=== PATIENT | female | born 1955 | race American Indian/Alaskan Native ===

== ENCOUNTER 2016-09-30 12:17 | Outpatient (CLI) | payer OTHER ==
[2016-09-30] MEDS ORDERED: PROVENTIL IH ONE (12:31)
== END 2016-09-30 12:18 | disposition home or self-care (01) ==
LOC: PF 12:17
PROVIDERS: ATTEND Internal Medicine
DX: J44.9 Chronic obstructive pulmonary disease, unspecified (principal)
CPT/HCPCS: 94060; 94640

== ENCOUNTER 2021-05-19 15:55 | Emergency (ER) | payer MEDICARE ==
[2021-05-19 16:00] VITALS: BP 120/69
[2021-05-19] MEDS ORDERED: MAGNESIUM SULFATE 2 GM/50 ML BAG IV ONE (16:06)
[2021-05-19] MEDS ORDERED: methylPREDNISolone Sod Succinate 125 MG/2 ML INJ IV ONE (16:06)
[2021-05-19] MEDS ORDERED: IPRATROPIUM 0.02% NEBU 2.5 ML IH ONE (16:07)
[2021-05-19] MEDS ORDERED: ALBUTEROL 2.5 MG/3 ML NEBU IH ONE (16:07)
--- NOTE | 2021-05-19 16:10 | Emergency Department Report ---
ED Shortness of Breath HPI - General Chief Complaint: Dyspnea/Respdistress Stated Complaint: SOB Time Seen by Provider: 05/19/21 16:04 Source: patient Mode of arrival: Ambulatory Limitations: No Limitations - History of Present Illness Initial Comments: Chief complaint: Difficulty breathing HPI: This is a 65-year-old female with history of COPD asthma, diabetes mellitus who presents with severe shortness of breath. Sudden onset this afternoon while driving. She has nonproductive cough shortness of breath wheezing. She is followed by sports broadcasting internship affiliated with [facility]. She denies fever, chest pain, abdominal pain, leg pain MD Complaint: shortness of breath -: Sudden, This afternoon Severity: severe Consistency: constant Improves With: nothing Worsens With: nothing Known History Of: COPD, asthma Associated Symptoms: denies other symptoms - Related Data Previous Rx's Medication Instructions Recorded Last Taken Type Doxycycline Hyclate [Doxycycline 100 mg PO Q12HR 7 Days #14 tab 05/19/21 Unknown Rx Hyclate TAB] Prednisone [predniSONE 10 mg 10 mg PO .TAPER #1 tab.ds.pk 05/19/21 Unknown Rx (6-Day Pack, 21 Tabs)] Allergies Allergy/AdvReac Type Severity Reaction Status Date / Time egg AdvReac STOMACH Unverified 04/12/13 12:56 CRAMPS,NAUSEA shellfish derived AdvReac Swelling Verified 05/19/21 16:37 ED Review of Systems ROS: Stated complaint: SOB Other details as noted in HPI Comment: All other systems reviewed and negative Constitutional: denies: chills, fever, malaise Respiratory: cough, shortness of breath Cardiovascular: denies: chest pain Gastrointestinal: denies: abdominal pain, nausea, vomiting ED Past Medical Hx - Past Medical History Previous Medical History?: Yes Hx Diabetes: Yes Hx Asthma: Yes Hx COPD: Yes - Surgical History Past Surgical History?: Yes Hx Cholecystectomy: Yes - Social History Smoking Status: Current Every Day Smoker Substance Use Type: None - Medications Home Medications: Home Medications Medication Instructions Recorded Confirmed Last Taken Type Doxycycline Hyclate [Doxycycline 100 mg PO Q12HR 7 Days #14 tab 05/19/21 Unknown Rx Hyclate TAB] Prednisone [predniSONE 10 mg 10 mg PO .TAPER #1 tab.ds.pk 05/19/21 Unknown Rx (6-Day Pack, 21 Tabs)] ED Physical Exam - General Limitations: No Limitations General appearance: alert, in distress, other (Accessory muscle use, tripod position, patient unable to speak full sentences) - Head Head exam: Present: atraumatic, normocephalic - Eye Eye exam: Present: normal appearance - ENT ENT exam: Present: mucous membranes moist - Neck Neck exam: Present: normal inspection, full ROM - Respiratory Respiratory exam: Present: accessory muscle use, decreased breath sounds, prolonged expiratory. Absent: respiratory distress, wheezes, rales, rhonchi - Cardiovascular Cardiovascular Exam: Present: normal rhythm, tachycardia, normal heart sounds. Absent: systolic murmur, diastolic murmur, rubs, gallop - GI/Abdominal GI/Abdominal exam: Present: soft, normal bowel sounds. Absent: distended, tenderness, guarding, rebound - Extremities Exam Extremities exam: Present: normal inspection - Neurological Exam Neurological exam: Present: alert, oriented X3 - Psychiatric Psychiatric exam: Present: normal affect, normal mood - Skin Skin exam: Present: warm, dry, intact, normal color. Absent: rash ED Course Vital Signs 05/19/21 05/19/21 15:59 17:06 Temperature 97.6 F Pulse Rate 106 H Pulse Rate [ 88 Anterior Bilateral Throughout] Respiratory 26 H Rate Respiratory 25 H Rate [Anterior Bilateral Throughout] Blood Pressure 120/69 [Left] O2 Sat by Pulse 97 Oximetry - Reevaluation(s) Reevaluation #1: 05/19/21 18:00 She feels much better. Oxygen 100% sent with approximately 30% FiO2. She is receiving nebulizer therapy. Moving air well clear breath sounds. Speaking full sentences. Reevaluation #2: 05/19/21 18:42 Patient is now laying flat. Resting comfortably. Discharged home. ED Medical Decision Making - Lab Data Result diagrams: 05/19/21 16:36 05/19/21 16:36 - Radiology Data Radiology results: report reviewed Patient Name: MYRIAM NEWMAN Gender: Female Date of : 1955 Referring Provider: ADRIANO PRESCOTT Organization: [facility] Accession Number: [id number] Requested Date: May 19, 2021 16:06 Report Status: Final Requested Procedure: 1 Procedure Description: XR chest 1V ap Modality: XR Findings Reporting MD: Miguel Villalta Dictation Time: May 19, 2021 15:36 Co Teacher: Not available Long Distance Billing Operator Date: CHEST 1 VIEW 05/19/2021 4:26 PM INDICATION / CLINICAL INFORMATION: Dyspnea. COMPARISON: 01/02/2013 FINDINGS: SUPPORT DEVICES: None. HEART / MEDIASTINUM: No significant abnormality. LUNGS / PLEURA: No significant pulmonary or pleural abnormality. No pneumothorax. ADDITIONAL FINDINGS: No significant additional findings. IMPRESSION: 1. No acute findings. Signer Name: Miguel Villalta DO Signed: 05/19/2021 3:36 PM Workstation Name: [id number] - Medical Decision Making Acute COPD exacerbation: Chest radiograph without acute findings CBC chemistry within normal limits. Prescribed doxycycline and prednisone. Critical care attestation.: If time is entered above; I have spent that time in minutes in the direct care of this critically ill patient, excluding procedure time. ED Disposition Clinical Impression: COPD with acute exacerbation Disposition: 01 HOME / SELF CARE / HOMELESS Is pt being admited?: No Does the pt Need Aspirin: No Condition: Stable Instructions: Chronic Obstructive Pulmonary Disease (ED), Chronic Obstructive Pulmonary Disease Prescriptions: Doxycycline Hyclate [Doxycycline Hyclate TAB] 100 mg PO Q12HR 7 Days #14 tab Prednisone [predniSONE 10 mg (6-Day Pack, 21 Tabs)] 10 mg PO .TAPER #1 tab.pk Referrals: PRIMARY CARE, [Primary Care Provider] - 3-5 Days
--- NOTE | 2021-05-19 16:41 | XRay Report ---
CHEST 1 VIEW 05/19/2021 4:26 PM INDICATION / CLINICAL INFORMATION: Dyspnea. COMPARISON: 01/02/2013 FINDINGS: SUPPORT DEVICES: None. HEART / MEDIASTINUM: No significant abnormality. LUNGS / PLEURA: No significant pulmonary or pleural abnormality. No pneumothorax. ADDITIONAL FINDINGS: No significant additional findings. IMPRESSION: 1. No acute findings. Signer Name: Miguel Villalta DO Signed: 05/19/2021 4:36 PM Workstation Name: [id number]
[2021-05-19 17:12] LABS: Basophils # (Auto) 0.1 K/mm3 (0.0-0.1); Basophils % (Auto) 1.2 % (0.0-1.8); Eosinophils # (Auto) 0.3 K/mm3 (0.0-0.4); Eosinophils % (Auto) 3.2 % (0.0-4.3); Hematocrit 44.5 % (30.3-42.9); Hemoglobin 14.8 gm/dl (10.1-14.3); Lymphocytes # (Auto) 1.9 K/mm3 (1.2-5.4); Lymphocytes % (Auto) 21.1 % (13.4-35.0); Mean Corpuscular HGB Conc 33 % (30-34); Mean Corpuscular Volume 91 fl (79-97); Monocytes # (Auto) 0.7 K/mm3 (0.0-0.8); Monocytes % (Auto) 7.3 % (0.0-7.3); Platelet Count 235 K/mm3 (140-440); Red Blood Count 4.87 M/mm3 (3.65-5.03); Red Cell Distribution Width 13.9 % (13.2-15.2)
[2021-05-19 17:31] LABS: BUN/Creatinine Ratio 14; Blood Urea Nitrogen 11 mg/dL (7-17); Hemolysis Index 5
== END 2021-05-19 18:50 | disposition home or self-care (01) ==
LOC: ED 15:55
DX: J44.1 Chronic obstructive pulmonary disease with (acute) exacerbation (principal); E11.8 Type 2 diabetes mellitus with unspecified complications; F17.200 Nicotine dependence, unspecified, uncomplicated; Z90.49 Acquired absence of other specified parts of digestive tract; Z91.012 Allergy to eggs; Z91.013 Allergy to seafood
CPT/HCPCS: 36415; 71045; 80048; 85025; 94640; 96365; 96375; 99284; J2930; J3475; 94644

== ENCOUNTER 2021-12-07 15:38 | Emergency (ER) | payer MEDICARE ==
[2021-12-07] MEDS ORDERED: methylPREDNISolone Sod Suc 125 MG in SODIUM CHLORIDE 0.9% 100 ML IV ONE (15:56)
--- NOTE | 2021-12-07 16:00 | Emergency Department Report ---
HPI - General Chief Complaint: Dyspnea/Respdistress Time Seen by Provider: 12/07/21 15:56 - HPI HPI: 3 days of shortness of breath with wheezing despite 3 times daily use of her Combivent MDI. The patient denies a cough she has a history of tobacco use with COPD. She stopped smoking years ago. She denies current chest pain nausea vomiting fever chills or any other associated symptoms. Exertion makes it worse. Nothing makes it better. ED Past Medical Hx - Past Medical History Hx Diabetes: Yes Hx Asthma: Yes Hx COPD: Yes - Surgical History Hx Cholecystectomy: Yes - Social History Smoking Status: Current Every Day Smoker Substance Use Type: None - Medications Home Medications: Home Medications Medication Instructions Recorded Confirmed Last Taken Type Ipratropium/Albuterol Sulfate 1 ampul IH TIDRT ampul.neb 12/07/21 Unknown Rx [DUONEB *Not for PRN Use*] predniSONE [Deltasone] 50 mg PO QDAY 5 Days #5 tab 12/07/21 Unknown Rx ED Review of Systems ROS: Stated complaint: ENMA Other details as noted in HPI Other: All other systems reviewed and negative. Physical Exam - Physical Exam Vital Signs: Vital Signs 12/07/21 15:44 Temperature 96.8 F L Pulse Rate 95 H Respiratory 24 Rate Blood Pressure 116/68 [Right] O2 Sat by Pulse 95 Oximetry Physical Exam: Physical Exam: Constitutional: AAOX3. Mild acute respiratory distress. No diaphoresis. HENT: Normocephalic. Pupils equal and reactive. No throat edema or erythema. Neck: No neck rigidity or tenderness. Cardiovascular: Heart sounds: No murmur. Normal rate and regular rhythm. Pulses: Intact distal pulses. Lungs: Prolonged expiratory phase with decreased breath sounds and wheezing. Chest wall: No tenderness. Abdominal: No distension. No mass/pulsatile mass. No abdominal tenderness, guarding nor rebound. Back: No CVA TTP. Musculoskeletal: Normal range of motion. No edema, No calf TTP. Skin: Warm and dry. Neurological: Alert and oriented to person, place, and time. Psychiatric: Mood and affect normal. Normal cognition and memory. Normal judgement. ED Course Vital Signs 12/07/21 15:44 Temperature 96.8 F L Pulse Rate 95 H Respiratory 24 Rate Blood Pressure 116/68 [Right] O2 Sat by Pulse 95 Oximetry - Reevaluation(s) Reevaluation #1: 05/28/22 17:18 On evaluation the patient is feeling better after the DuoNeb and the steroids. Her chest x-ray looks normal. The patient CBC chemistries and troponin were all within normal limits. She will be discharged home on steroids. 12/07/21 17:55 ED Medical Decision Making - Lab Data Result diagrams: 12/07/21 16:07 12/07/21 16:07 Critical care attestation.: If time is entered above; I have spent that time in minutes in the direct care of this critically ill patient, excluding procedure time. ED Disposition Clinical Impression: COPD exacerbation Disposition: 01 HOME / SELF CARE / HOMELESS Is pt being admited?: No Does the pt Need Aspirin: No Condition: Stable Instructions: Chronic Obstructive Pulmonary Disease Exacerbation, [id number], Chronic Obstructive Pulmonary Disease (ED) Prescriptions: predniSONE [Deltasone] 50 mg PO QDAY 5 Days #5 tab Print Language: KINYARWANDA
--- NOTE | 2021-12-07 16:15 | XRay Report ---
CHEST 1 VIEW INDICATION: Chest Pain. COMPARISON: 05/19/2021 FINDINGS: SUPPORT DEVICES: None. HEART: Within normal limits. LUNGS/PLEURA: No acute air space or interstitial disease. ADDITIONAL FINDINGS: None. IMPRESSION: 1. No acute findings. Signer Name: Dieter Sharma MD Signed: 12/07/2021 4:11 PM Workstation Name: [id number]
[2021-12-07] MEDS: methylPREDNISolone Sod Succinate 125 MG/2 ML INJ IV ONE ×2 (16:23→17:17)
[2021-12-07] MEDS ORDERED: IPRATROPIUM/ALBUTEROL SULFATE 3 ML AMPUL.NEB IH ONE (16:57)
[2021-12-07 17:28] LABS: Basophils # (Auto) 0.1 K/mm3 (0.0-0.1); Basophils % (Auto) 0.7 % (0.0-1.8); Eosinophils # (Auto) 0.2 K/mm3 (0.0-0.4); Eosinophils % (Auto) 2.9 % (0.0-4.3); Hematocrit 43.6 % (30.3-42.9); Hemoglobin 14.5 gm/dl (10.1-14.3); Lymphocytes # (Auto) 1.6 K/mm3 (1.2-5.4); Mean Corpuscular HGB Conc 33 % (30-34); Mean Corpuscular Volume 92 fl (79-97); Monocytes # (Auto) 0.4 K/mm3 (0.0-0.8); Monocytes % (Auto) 5.3 % (0.0-7.3); Platelet Count 271 K/mm3 (140-440); Red Blood Count 4.74 M/mm3 (3.65-5.03); Red Cell Distribution Width 14.3 % (13.2-15.2)
[2021-12-07 17:37] LABS: Alanine Aminotransferase 15 units/L (7-56); Albumin 4.3 g/dL (3.9-5); BUN/Creatinine Ratio 17; Blood Urea Nitrogen 15 mg/dL (7-17); Calcium 9.2 mg/dL (8.4-10.2); Hemolysis Index 8
[2021-12-07 19:57] VITALS: BP 132/65
[2021-12-07] MEDS ORDERED: IPRATROPIUM/ALBUTEROL SULFATE 3 ML AMPUL.NEB IH SCH (20:00)
== END 2021-12-07 19:56 | disposition home or self-care (01) ==
LOC: ED 15:38
DX: J44.1 Chronic obstructive pulmonary disease with (acute) exacerbation (principal); F17.200 Nicotine dependence, unspecified, uncomplicated; E11.8 Type 2 diabetes mellitus with unspecified complications; Z90.49 Acquired absence of other specified parts of digestive tract
CPT/HCPCS: 36415; 71045; 80053; 84484; 85025; 93005; 94640; 99284; J2930; 94644

== ENCOUNTER 2022-03-20 22:46 | Emergency (ER) | payer MEDICARE ==
[2022-03-20 22:53] VITALS: BP 132/76
[2022-03-20 23:31] LABS: Basophils % (Auto) 0.6 % (0.0-1.8); Eosinophils # (Auto) 0.2 K/mm3 (0.0-0.4); Eosinophils % (Auto) 2.5 % (0.0-4.3); Hematocrit 43.7 % (30.3-42.9); Hemoglobin 14.7 gm/dl (10.1-14.3); Lymphocytes % (Auto) 27.6 % (13.4-35.0); Mean Corpuscular HGB Conc 34 % (30-34); Mean Corpuscular Volume 93 fl (79-97); Monocytes # (Auto) 0.8 K/mm3 (0.0-0.8); Monocytes % (Auto) 10.3 % (0.0-7.3); Platelet Count 217 K/mm3 (140-440); Red Blood Count 4.69 M/mm3 (3.65-5.03); Red Cell Distribution Width 13.4 % (13.2-15.2)
[2022-03-20 23:38] LABS: INR 0.88 (0.87-1.13)
[2022-03-20 23:50] LABS: Alanine Aminotransferase 19 units/L (7-56); Albumin 4.5 g/dL (3.9-5); BUN/Creatinine Ratio 24; Blood Urea Nitrogen 19 mg/dL (7-17); Calcium 8.7 mg/dL (8.4-10.2); Hemolysis Index 9
[2022-03-20] MEDS ORDERED: ALBUTEROL 2.5 MG/3 ML NEBU IH ONE (23:55)
[2022-03-20] MEDS ORDERED: IPRATROPIUM 0.02% NEBU 2.5 ML IH ONE (23:55)
[2022-03-20] MEDS ORDERED: methylPREDNISolone Sod Succinate 125 MG/2 ML INJ IV ONE (23:55)
--- NOTE | 2022-03-21 00:30 | XRay Report ---
CHEST 2 VIEWS INDICATION / CLINICAL INFORMATION: possible Sepsis STUDY TIME: 2313 COMPARISON: 12/07/2021 FINDINGS: SUPPORT DEVICES: None. HEART / MEDIASTINUM: No significant abnormality. LUNGS / PLEURA: Chronic changes are seen including evidence of COPD. No focal infiltrates or definite pleural effusions are seen. No pneumothorax. ADDITIONAL FINDINGS: No significant additional findings. Signer Name: Librado Snyder MD Signed: 03/21/2022 12:25 AM Workstation Name: [id number]
--- NOTE | 2022-03-21 01:28 | Emergency Department Report ---
ED Shortness of Breath HPI - General Chief Complaint: Dyspnea/Respdistress Stated Complaint: ENMA Time Seen by Provider: 03/20/22 23:54 Source: patient Mode of arrival: Ambulatory Limitations: No Limitations - History of Present Illness Initial Comments: SOB X 2 DAYS, REPORTS HX OF COPD WITHOUT HOME O2 USE. PT C/A/O, RESP LABORED AT APROX 28 BPM. PT 89-90% ON RA, PLACED ON 2L NC WITH IMPROVEMENT TO 99%. PT IN TRIPOOD POSITION AT TIMES. MD Complaint: shortness of breath -: Gradual, hour(s) Consistency: intermittent Improves With: oxygen Worsens With: nothing Associated Symptoms: denies other symptoms - Related Data Home Oxygen Therapy: No Previous Rx's Medication Instructions Recorded Last Taken Type Ipratropium/Albuterol Sulfate 1 ampul IH TIDRT ampul.neb 12/07/21 Unknown Rx [DUONEB *Not for PRN Use*] predniSONE [Deltasone] 50 mg PO QDAY 5 Days #5 tab 12/07/21 Unknown Rx Allergies Allergy/AdvReac Type Severity Reaction Status Date / Time egg AdvReac STOMACH Verified 12/07/21 15:46 CRAMPS,NAUSEA shellfish derived AdvReac Swelling Verified 12/07/21 15:46 ED Review of Systems ROS: Stated complaint: ENMA Other details as noted in HPI Constitutional: denies: chills, fever Eyes: denies: eye pain, eye discharge, vision change ENT: denies: ear pain, throat pain Respiratory: denies: cough, shortness of breath, wheezing Cardiovascular: denies: chest pain, palpitations Endocrine: no symptoms reported Gastrointestinal: denies: abdominal pain, nausea, diarrhea Genitourinary: denies: urgency, dysuria, discharge Musculoskeletal: denies: back pain, joint swelling, arthralgia Skin: denies: rash, lesions Neurological: denies: headache, weakness, paresthesias Psychiatric: denies: anxiety, depression Hematological/Lymphatic: denies: easy bleeding, easy bruising ED Past Medical Hx - Past Medical History Previous Medical History?: Yes Hx Hypertension: No Hx CVA: No Hx Diabetes: Yes Hx Asthma: Yes Hx COPD: Yes - Surgical History Past Surgical History?: Yes Hx Cholecystectomy: Yes - Social History Smoking Status: Former Smoker - Medications Home Medications: Home Medications Medication Instructions Recorded Confirmed Last Taken Type Ipratropium/Albuterol Sulfate 1 ampul IH TIDRT ampul.neb 12/07/21 Unknown Rx [DUONEB *Not for PRN Use*] predniSONE [Deltasone] 50 mg PO QDAY 5 Days #5 tab 12/07/21 Unknown Rx ED Physical Exam - General Limitations: No Limitations General appearance: alert, in no apparent distress - Head Head exam: Present: atraumatic, normocephalic - Eye Eye exam: Present: normal appearance - ENT ENT exam: Present: mucous membranes moist - Neck Neck exam: Present: normal inspection - Respiratory Respiratory exam: Present: normal lung sounds bilaterally, wheezes. Absent: respiratory distress - Cardiovascular Cardiovascular Exam: Present: regular rate, normal rhythm. Absent: systolic m urmur, diastolic murmur, rubs, gallop - GI/Abdominal GI/Abdominal exam: Present: soft, normal bowel sounds - Extremities Exam Extremities exam: Present: normal inspection - Back Exam Back exam: Present: normal inspection - Neurological Exam Neurological exam: Present: alert, oriented X3 - Psychiatric Psychiatric exam: Present: normal affect, normal mood - Skin Skin exam: Present: warm, dry, intact, normal color. Absent: rash ED Course Vital Signs 03/20/22 03/21/22 22:51 01:03 Temperature 98.6 F Pulse Rate 92 H Pulse Rate [ 84 Throughout] Respiratory 18 Rate Respiratory 20 Rate [ Throughout] Blood Pressure 132/76 O2 Sat by Pulse 97 Oximetry ED Medical Decision Making - Lab Data Result diagrams: 03/20/22 22:59 03/20/22 22:59 Critical care attestation.: If time is entered above; I have spent that time in minutes in the direct care of this critically ill patient, excluding procedure time. ED Disposition Clinical Impression: COPD exacerbation, SOB (shortness of breath) Disposition: 01 HOME / SELF CARE / HOMELESS Is pt being admited?: No Does the pt Need Aspirin: No Condition: Stable Instructions: Chronic Obstructive Pulmonary Disease (ED), Chronic Obstructive Pulmonary Disease, [id number]
== END 2022-03-21 02:41 | disposition home or self-care (01) ==
LOC: ED 22:46
DX: J44.1 Chronic obstructive pulmonary disease with (acute) exacerbation (principal); J45.901 Unspecified asthma with (acute) exacerbation; Z87.891 Personal history of nicotine dependence; Z91.018 Allergy to other foods; E11.9 Type 2 diabetes mellitus without complications
CPT/HCPCS: 36415; 71046; 80053; 82140; 82805; 85025; 85610; 87040; 94640; 96374; 99284; J2930; 94644